=== PATIENT | female | born 1990 | race Caucasian/White ===

== ENCOUNTER 2020-03-13 08:46 | Emergency (ER) | payer MEDICAID ==
[~2020-03-13] VITALS: Ht 157.5 cm; Wt 60.5 kg
[2020-03-13 09:05] VITALS: BP 96/53
[2020-03-13] MEDS ORDERED: ACETAMINOPHEN 325 MG TABLET PO ONE (09:15)
== END 2020-03-13 10:40 | disposition home or self-care (01) ==
LOC: EMS 08:57
DX: S62.620A Displaced fracture of middle phalanx of right index finger, initial encounter for closed fracture (principal); W10.8XXA Fall (on) (from) other stairs and steps, initial encounter; Y93.89 Activity, other specified; Y92.89 Other specified places as the place of occurrence of the external cause; Y99.8 Other external cause status